=== PATIENT | female | born 1995 | race African-American/Black ===

== ENCOUNTER 2021-04-29 17:23 | Emergency (ER) | payer OTHER ==
[~2021-04-29] VITALS: Ht 162.6 cm; Wt 71.4 kg
[~2021-04-29 17:23] MED LIST: FERR325T14 PO; IBUP-1060 PO; PNV1TABL25 PO
[2021-04-29 20:17] LABS: U PREG PATIENT POSITIVE (NEG)
--- NOTE | 2021-04-29 20:23 | PHYS DOC ---
Past Medical History Past Medical History: No Pertinent History (EUNICE HICKS APRN) Past Surgical History: No Surgical History (EUNICE HICKS APRN) Smoking Status: Never Smoker Alcohol Use: None Drug Use: None (EUNICE HICKS APRN) General Adult EDM: Chief Complaint: VAGINAL BLEEDING HPI: HPI: Patient is a 25-year-old female who presents to the emergency department for bright red vaginal bleeding that has been going on for 2 weeks. Which has increased over the last week. She reports that she has been saturating 3 pads every hour for the last week. She also reports decreased appetite, suprapubic pain with nausea and vomiting x2 weeks. She reports that on April 26 she did pass a large clot with tissue. Patient states that she took Tylenol at 12:00 for her abdominal pain that she rates 8 out of 10. Her last menstrual period is March 16. She is . She has no OB care. Patient denies any fever, chills, urinary symptoms, diarrhea. (EUNICE HICKS APRN) Review of Systems: Review of Systems: Constitutional: See HPI GI: See HPI : See HPI (EUNICE HICKS APRN) Heart Score: C/O Chest Pain: N/A Risk Factors: Risk Factors: DM, Current or recent (<one month) smoker, HTN, HLP, family history of CAD, obesity. Risk Scores: Score 0 - 3: 2.5% MACE over next 6 weeks - Discharge Home Score 4 - 6: 20.3% MACE over next 6 weeks - Admit for Clinical Observation Score 7 - 10: 72.7% MACE over next 6 weeks - Early Invasive Strategies (EUNICE HICKS APRN) Current Medications: Current Medications Medications (Trade) Dose Ordered Sig/Nakul Start Time Stop Time Status Last Admin Dose Admin Ondansetron HCl (Zofran) 4 mg 1X ONCE 04/29/21 20:30 04/29/21 20:31 UNV Sodium Chloride 1,000 ml @ 1,000 mls/hr 1X ONCE 04/29/21 20:30 04/29/21 21:29 UNV (EUNICE HICKS APRN) Allergies: Allergies: Allergies Coded Allergies Type Severity Reaction Last Updated Verified No Known Drug Allergies 08/16/15 No (EUNICE HICKS APRN) Physical Exam: PE: Constitutional: Well developed, well nourished, no acute distress, non-toxic appearance. [] HENT: Normocephalic, atraumatic, bilateral external ears normal, oropharynx moist, no oral exudates, nose normal. [] Eyes: PERRL EOMI, conjunctiva normal, no discharge. [] Neck: Normal range of motion, no stridor Cardiovascular:Heart rate regular rhythm, no murmur [] Lungs & Thorax: Bilateral breath sounds clear to auscultation [] Abdomen: Bowel sounds normal, soft, mild suprapubic tenderness with palpation, no masses, no pulsatile masses. [] Skin: Warm, dry, no erythema, no rash. [] Back: Normal range of motion Extremities: No tenderness, no cyanosis, no clubbing, ROM intact, no edema. [] Neurologic: Alert and oriented X 3, normal motor function, normal sensory function, no focal deficits noted. [] Psychologic: Affect normal, judgement normal, mood normal. [] (EUNICE HICKS APRN) Current Patient Data: Labs: Laboratory Tests Test 04/29/21 20:06 04/29/21 20:20 Urine Collection Type Unknown Urine Color Marianne Urine Clarity Cloudy Urine pH 6.5 Urine Specific [place] >=1.030 Urine Protein 30 mg/dL Urine Glucose (UA) Negative mg/dL Urine Ketones (Stick) >=80 mg/dL Urine Blood Large Urine Nitrite Negative Urine Bilirubin Negative Urine Urobilinogen Dipstick 1.0 mg/dL Urine Leukocyte Esterase Negative Urine RBC 3-5 /HPF Urine WBC 1-4 /HPF Urine Squamous Epithelial Cells Many /LPF Urine Bacteria Moderate /HPF Urine Mucus Marked /LPF Urine Test Positive White Blood Count 6.5 x10^3/uL Red Blood Count 5.00 x10^6/uL Hemoglobin 14.4 g/dL Hematocrit 43.7 % Mean Corpuscular Volume 88 fL Mean Corpuscular Hemoglobin 29 pg Mean Corpuscular Hemoglobin Concent 33 g/dL Red Cell Distribution Width 14.4 % Platelet Count 376 x10^3/uL Neutrophils (%) (Auto) 42 % Lymphocytes (%) (Auto) 49 % Monocytes (%) (Auto) 7 % Eosinophils (%) (Auto) 1 % Basophils (%) (Auto) 1 % Neutrophils # (Auto) 2.7 x10^3/uL Lymphocytes # (Auto) 3.2 x10^3/uL Monocytes # (Auto) 0.5 x10^3/uL Eosinophils # (Auto) 0.1 x10^3/uL Basophils # (Auto) 0.1 x10^3/uL Maternal Serum HCG Beta Subunit 86013 mIU/mL Sodium Level 141 mmol/L Potassium Level 3.9 mmol/L Chloride Level 103 mmol/L Carbon Dioxide Level 24 mmol/L Anion Gap 14 Blood Urea Nitrogen 12 mg/dL Creatinine 0.8 mg/dL Estimated GFR (Cockcroft-Gault) 106.6 BUN/Creatinine Ratio 15 Glucose Level 118 mg/dL Calcium Level 8.7 mg/dL Total Bilirubin 0.6 mg/dL Aspartate Amino Transf (AST/SGOT) < 5 U/L Alanine Aminotransferase (ALT/SGPT) 12 U/L Alkaline Phosphatase 95 U/L Total Protein 7.4 g/dL Albumin 4.0 g/dL Albumin/Globulin Ratio 1.2 Current Medications Medications (Trade) Dose Ordered Sig/Nakul Route PRN Reason Start Time Stop Time Status Last Admin Dose Admin Sodium Chloride 1,000 ml @ 1,000 mls/hr 1X ONCE IV 04/29/21 20:30 04/29/21 21:29 DC 04/29/21 20:31 Ondansetron HCl (Zofran) 4 mg 1X ONCE IVP 04/29/21 20:30 04/29/21 20:31 DC 04/29/21 20:30 Laboratory Tests Test 04/29/21 20:06 Urine Test Positive (NEG) (EUNICE HICKS APRN) EKG: EKG: [] (EUNICE HICKS APRN) Radiology/Procedures: Radiology/Procedures: []REASON: vaginal bleeding in PROCEDURE: OB <14 WKS W/TV Exam: Ultrasound OB less than 14 week Indication: Vaginal bleeding Technique: Real-time grayscale and color Doppler images of the pelvis were obtained by the department briquette molder. Comparisons: None FINDINGS: Uterus measures 9.3 x 6.0 x 5.0 cm. Within the lower uterine segment of the endometrium there is a rounded anechoic cystic structure. No internal pole or yolk sac is identified. Right ovary measures 2.8 x 2.8 x 2.3 cm. Left ovary measures 2.2 x 3.0 x 1.5 cm. Vascular flow identified in the ovaries bilaterally. No free fluid identified in the pelvis. IMPRESSION: Possible abnormal gestational sac at the lower uterine segment of the endometrium. No internal yolk sac or pole identified. Findings are concerning for a failed however this is not confirmed. Recommend correlation serial beta-hCG measurements and short-term follow-up ultrasound. Electronically signed by: Ame House MD (04/29/2021 9:50 PM) [facility] DICTATED and SIGNED BY: AME HOUSE MD DATE: 04/29/21 [id number] (EUNICE HICKS APRN) Course & Med Decision Making: Course & Med Decision Making Pertinent Labs and Imaging studies reviewed. (See chart for details) [] Patient is seen in the emergency department today for vaginal bleeding and suprapubic pain with nausea and vomiting during . Last menstrual period March 16. She has no OB care. Work-up in the ER consisted of blood work, urinalysis and ultrasound. Patient treated with IV fluids and nausea medication. Patient's vital signs are stable and she is in no acute distress. Blood work is unremarkable. Patient's hCG level [id number]. She is a positive and therefore does not require RhoGam. Patient's urine does show 1-4 white blood cells, moderate bacteria but no leukocytes, patient be treated with an antibiotic for urinary tract infection. Ultrasound showed vascular flow to bilateral ovaries, possible abnormal gestational sac in the lower uterine segment, no yolk sac internally or pole. Patient advised to follow-up with her primary care provider or return to the emergency department in 2 days for repeat beta hCG levels. Patient instructed to return to the emergency department if she is saturating more than 1 pad an hour. I discussed with patient all findings and diagnostic testing as well as the need to follow-up with PCP for further evaluation and treatment or return to the ER if any new or worsening symptoms. Strict return precautions were also discussed at length. Patient voiced understanding and agreement with the plan. Patient is hemodynamically stable at the time of disposition. (EUNICE HICKS APRN) Course & Med Decision Making Patients Care and treatment plan provided by ER Nurse Practitioner. I was available for consult. Patient's chart reviewed. (ZULEMA INMAN DO) Foster Disclaimer: Foster Disclaimer: This electronic medical record was generated, in whole or in part, using a voice recognition dictation system. (EUNICE HICKS APRN) Departure Departure Impression: Primary Impression: Vaginal bleeding affecting early Disposition: HOME / SELF CARE / HOMELESS Condition: GOOD Referrals: NO PCP (PCP) Patient Instructions: ABCs of , Vaginal Bleeding During , First Trimester Additional Instructions: You are seen in the emergency department for vaginal bleeding and . Your blood work was unremarkable. You are a positive. Your urine did show a urinary tract infection you will be treated with an antibiotic. Please start and finish it completely. Increase your fluids. Avoid any bladder irritants like caffeine, sugary beverages or alcohol. The ultrasound did not show a yolk sac or pole. Your beta hCG level today [id number]. You need to follow-up with your primary care provider/OB or return to the emergency department in 2 days to have this level rechecked to make sure that it is increasing. Please return to the emergency department if you develop lightheadedness, worsening abdominal pain, intractable nausea or vomiting, high fevers refractory to treatment or you are saturating through more than 1 pad an hour. Scripts Cephalexin (CEPHALEXIN) 500 Mg Tablet 1 TAB PO TID for 7 Days, #21 TAB 0 Refills Prov: EUNICE HICKS APRN 04/29/21 EUNICE HICKS APRN Apr 29, 2021 20:23 ZULEMA INMAN I DO Apr 30, 2021 06:08
[2021-04-29 20:29] LABS: BASO # 0.1 x10^3/uL (0.0-0.2); BASO % 1 % (0-3); EOS # 0.1 x10^3/uL (0.0-0.7); EOS % 1 % (0-3); HEMATOCRIT 43.7 % (36.0-47.0); HEMOGLOBIN 14.4 g/dL (12.0-15.5); LYMPH # 3.2 x10^3/uL (1.0-4.8); LYMPH % 49 % (24-48); MEAN CORPUSCULAR HEMOGLOBIN 29 pg (25-35); MEAN CORPUSCULAR HGB CONC 33 g/dL (31-37); MEAN CORPUSCULAR VOLUME 88 fL (79-100); MONO # 0.5 x10^3/uL (0.0-1.1); MONO % 7 % (0-9); NEUT # 2.7 x10^3/uL (1.8-7.7); NEUT % 42 % (31-73); PLATELET COUNT 376 x10^3/uL (140-400); RED CELL DISTRIBUTION WIDTH 14.4 % (11.5-14.5); WHITE BLOOD COUNT 6.5 x10^3/uL (4.0-11.0)
[2021-04-29] MEDS ORDERED: ONDANSETRON PF 4 MG/2 ML VIAL. IVP ONE (20:30)
[2021-04-29] MEDS ORDERED: IV NORMAL SALINE 1000ML BAG 1,000 ML IV ONE (20:30)
[2021-04-29 20:37] LABS: ANION GAP 14 (6-14); BLOOD UREA NITROGEN 12 mg/dL (7-20); BUN/CREATININE RATIO 15 (6-20); CALCIUM 8.7 mg/dL (8.5-10.1); CARBON DIOXIDE 24 mmol/L (21-32); CHLORIDE 103 mmol/L (98-107); CREATININE 0.8 mg/dL (0.6-1.0); GFR 106.6; GLUCOSE 118 mg/dL (70-99); POTASSIUM 3.9 mmol/L (3.5-5.1); SODIUM 141 mmol/L (136-145)
[2021-04-29 20:42] LABS: ALBUMIN/GLOBULIN RATIO 1.2 (1.0-1.7); ALK PHOS 95 U/L (46-116); ALT (SGPT) 12 U/L (14-59); TOTAL BILIRUBIN 0.6 mg/dL (0.2-1.0); TOTAL PROTEIN 7.4 g/dL (6.4-8.2)
[2021-04-29 20:43] LABS: AST (SGOT) < 5 U/L (15-37)
[2021-04-29 20:54] LABS: BILIRUBIN,URINE NEGATIVE (NEG); CLARITY,URINE CLOUDY; COLOR,URINE AMBER; NITRITE,URINE NEGATIVE (NEG); PH,URINE 6.5 (<5.0-8.0); PROTEIN,URINE 30 mg/dL (NEG-TRACE)
[2021-04-29 21:01] LABS: BACTERIA,URINE MODERATE /HPF (0-FEW)
--- NOTE | 2021-04-29 21:52 | RAD ---
Exam: Ultrasound OB less than 14 week Indication: Vaginal bleeding Technique: Real-time grayscale and color Doppler images of the pelvis were obtained by the department electronics installer. Comparisons: None FINDINGS: Uterus measures 9.3 x 6.0 x 5.0 cm. Within the lower uterine segment of the endometrium there is a ro unded anechoic cystic structure. No internal pole or yolk sac is identified. Right ovary measures 2.8 x 2.8 x 2.3 cm. Left ovary measures 2.2 x 3.0 x 1.5 cm. Vascular flow identified in the ovaries bilaterally. No free fluid identified in the pelvis. IMPRESSION: Possible abnormal gestational sac at the lower uterine segment of the endometrium. No internal yolk s ac or pole identified. Findings are concerning for a failed however this is not confi rmed. Recommend correlation serial beta-hCG measurements and short-term follow-up ultrasound. Electronically signed by: Ame Lozoya MD (04/29/2021 9:50 PM) [facility]
[2021-04-29] MEDS ORDERED: CEPH500T PO (22:10)
[2021-04-29 22:13] VITALS: BP 93/59
== END 2021-04-29 22:29 | disposition home or self-care (01) ==
LOC: ER 17:23
DX: O46.91 Antepartum hemorrhage, unspecified, first trimester (principal); Z3A.01 Less than 8 weeks gestation of pregnancy
CPT/HCPCS: 36415; 76801; 76817; 80053; 81001; 81025; 84702; 85025; 86900; 86901; 87086; 96361; 96374; 99285; J2405; J7030